=== PATIENT | female | born 1995 | race Hispanic/Latino ===

== ENCOUNTER 2025-05-02 19:58 | Emergency (ER) | payer BC ==
[~2025-05-02] VITALS: Ht 142.2 cm; Wt 54.4 kg
[2025-05-02 21:19] VITALS: PULSE 88; RESP 16; TEMP 98.8
[2025-05-02 21:56] LABS: BASOPHILS % 0.4 % (0.0-1.0); EOSINOPHILS % 0.5 % (0.0-6.0); LYMPHOCYTES % 12.2 % (18.0-39.1); MONOCYTES % 3.8 % (4.4-11.3); NEUTROPHILS % 82.6 % (38.7-80.0); RED CELL DISTRIBUTION WIDTH 12.2 % (11.7-14.4)
[2025-05-02 22:00] LABS: LEUKOCYTE ESTERASE ,URINE TRACE (NEGATIVE); PROTEIN,URINE DIPSTICK NEGATIVE (NEGATIVE); URINE UROBILINOGEN 0.2 mg/dL (0.2 - 1)
[2025-05-02 22:02] LABS: EPITHELIAL CELLS,URINE MANY /LPF; PREGNANCY TEST, URINE NEGATIVE (NEGATIVE)
[2025-05-02 22:09] LABS: EST GLOMERULAR FILTRATION RATE 106.0 ML/MIN (>=60)
[2025-05-02] MEDS ORDERED: IOPAMIDOL 370 MG/ML 100 ML INFUS..BTL INJ ONE (22:28)
[2025-05-02] MEDS: SODIUM CHLORIDE 0.9% 1000ML 1,000 ML IV STA (23:28)
[2025-05-02] MEDS: ONDANSETRON HCL INJ 2MG/ML 2ML 2 MG/ML VIAL IV STA (23:28)
[2025-05-02 23:38] VITALS: BP 118/72; PULSE 66; RESP 18; O2SAT 100
== END 2025-05-02 23:39 | disposition home or self-care (01) ==
LOC: ER 20:18
DX: R10.32 Left lower quadrant pain (principal); R11.2 Nausea with vomiting, unspecified
CPT/HCPCS: 36415; 74177; 80053; 81001; 81025; 83690; 85025; 99284; J2405; J7030; Q9967